=== PATIENT | female | born 1985 | race African-American/Black ===

== ENCOUNTER 2017-09-26 15:40 | Emergency (ER) | payer OTHER ==
[~2017-09-26] VITALS: Ht 167.6 cm; Wt 90.7 kg
[~2017-09-26 15:40] MED LIST: ADVAIR HFA115 MCG/21 INH; CITRATE OF MAG296 ML PO; HYDROCODONE-APA1 TA1 PO; NOHOMEMEDICATIONS; NORCO 5-325 TA1 EACH PO; ONDANSETRON HCL4 M2 PO; PREDNISONE50 MG PO; SYMBICORT160 MCG/4. INH; VENTOLIN HFA INH8 GM INH
[2017-09-26 17:00] LABS: URINE BILIRUBIN NEGATIVE (Negative); URINE BLOOD NEGATIVE (Negative); URINE CLARITY CLEAR; URINE COLOR YELLOW; URINE GLUCOSE-RANDOM* NEGATIVE (Negative); URINE KETONES NEGATIVE (Negative); URINE LEUKOCYTES-REFLEX NEGATIVE (Negative); URINE NITRITE-REFLEX NEGATIVE (Negative); URINE PROTEIN (DIPSTICK) NEGATIVE (Negative); URINE UROBILINOGEN 0.2 E.U./dl (0.2-1.0)
[2017-09-26 17:01] LABS: ABSOLUTE NEUTROPHILS 5.1 thou/uL (1.4-8.2); BASOPHILS 1.4 % (0.0-2.0); EOSINOPHILS 8.2 % (0.0-3.0); HEMATOCRIT 36.6 % (37.0-47.0); HEMOGLOBIN 11.6 gm/dL (12.0-15.0); LYMPHOCYTES 25.7 % (24.0-44.0); MCH 22.7 pg (26.0-34.0); MCHC 31.8 g/dL (28.0-37.0); MCV 71.5 fL (80.0-100.0); MONOCYTES 8.1 % (1.0-8.0); PLATELET COUNT 307 thou/uL (150-400); POLYS 56.6 % (36.0-66.0); RBC 5.11 mil/uL (4.20-5.00); RDW 15.9 % (10.5-14.5)
[2017-09-26 17:07] LABS: CALCIUM 8.9 mg/dL (8.5-10.1); CREATININE 0.8 mg/dL (0.6-1.0); POTASSIUM 3.8 mmol/L (3.5-5.1)
[2017-09-26 17:13] LABS: ALBUMIN 3.3 g/dL (3.4-5.0); TOTAL BILIRUBIN 0.3 mg/dL (<0.1-1.0); TOTAL PROTEIN 7.5 g/dL (6.4-8.2)
[2017-09-26 17:26] LABS: MICROCYTES 1+
[2017-09-26 17:27] LABS: ANISOCYTOSIS 2+; HYPOCHROMASIA 2+
[2017-09-26] MEDS ORDERED: NAPROSYN500 MG PO (19:27)
[2017-09-26] MEDS ORDERED: TRAMADOL 50 MG50 MG PO (19:27)
[2017-09-26 19:37] VITALS: BP 123/84
== END 2017-09-26 19:39 | disposition home or self-care (01) ==
LOC: ER 15:40
PROVIDERS: Physician Assistant
DX: R10.11 Right upper quadrant pain (principal); K66.0 Peritoneal adhesions (postprocedural) (postinfection); J45.909 Unspecified asthma, uncomplicated

== ENCOUNTER 2021-08-31 09:35 | Emergency (ER) | payer OTHER ==
[~2021-08-31] VITALS: Ht 165.1 cm; Wt 97.5 kg
[~2021-08-31 09:35] MED LIST changes: +NAPROSYN500 MG PO; +TRAMADOL 50 MG50 MG PO
[2021-08-31 11:26] LABS: URINE BILIRUBIN NEGATIVE (Negative); URINE BLOOD NEGATIVE (Negative); URINE CLARITY CLEAR; URINE COLOR YELLOW; URINE GLUCOSE-RANDOM* NEGATIVE (Negative); URINE KETONES NEGATIVE (Negative); URINE LEUKOCYTES-REFLEX NEGATIVE (Negative); URINE NITRITE-REFLEX NEGATIVE (Negative); URINE PROTEIN (DIPSTICK) NEGATIVE (Negative); URINE SPECIFIC GRAVITY 1.025 (1.005-1.035)
[2021-08-31 12:02] LABS: ABSOLUTE NEUTROPHILS 4.4 thou/uL (1.4-8.2); BASOPHILS 0.7 % (0.0-2.0); EOSINOPHILS 11.3 % (0.0-3.0); HEMATOCRIT 37.9 % (37.0-47.0); HEMOGLOBIN 11.7 gm/dL (12.0-15.0); LYMPHOCYTES 14.6 % (24.0-44.0); MCHC 30.8 g/dL (28.0-37.0); MCV 74.7 fL (80.0-100.0); MONOCYTES 10.8 % (1.0-8.0); PLATELET COUNT 297 thou/uL (150-400); POLYS 62.6 % (36.0-66.0); RBC 5.08 mil/uL (4.20-5.00); RDW 15.1 % (10.5-14.5)
[2021-08-31 12:38] LABS: CALCIUM 8.6 mg/dL (8.5-10.1); CREATININE 0.7 mg/dL (0.6-1.0)
[2021-08-31 12:43] LABS: ALBUMIN 3.3 g/dL (3.4-5.0); TOTAL BILIRUBIN 0.4 mg/dL (0.2-1.0); TOTAL PROTEIN 7.3 g/dL (6.4-8.2)
[2021-08-31] MEDS ORDERED: ZOFRAN ODT4 MG PO (13:01)
[2021-08-31] MEDS ORDERED: METHOCARBAMOL500 M2 PO (13:01)
[2021-08-31] MEDS ORDERED: PERCOCET 5-3251 EACH PO (13:03)
[2021-08-31 13:21] VITALS: BP 105/47
== END 2021-08-31 13:22 | disposition home or self-care (01) ==
LOC: ER 09:35
PROVIDERS: Emergency Medicine; Nurse Practitioner Family
DX: D25.9 Leiomyoma of uterus, unspecified (principal); J45.909 Unspecified asthma, uncomplicated; Z90.89 Acquired absence of other organs; Z87.442 Personal history of urinary calculi; Z79.51 Long term (current) use of inhaled steroids; Z79.891 Long term (current) use of opiate analgesic; Z79.899 Other long term (current) drug therapy; Z91.040 Latex allergy status; Z91.010 Allergy to peanuts